=== PATIENT | female | born 1945 | race Caucasian/White ===

== ENCOUNTER 2018-04-07 01:09 | Emergency (ER) | payer MEDICARE ==
[2018-04-07] MEDS ORDERED: diphenhydrAMINE 50 MG/ML SDV IM ONE (01:18)
[2018-04-07] MEDS ORDERED: methylPREDNISolone Sodium Succinate 125 MG/2 ML SDV IVPUSH ONE (01:28)
--- NOTE | 2018-04-07 01:52 | EDM.PDOC ---
ED HPI GENERAL MEDICAL PROBLEM - General Chief Complaint: ENT Problem Stated Complaint: swollen tongue Time Seen by Provider: 04/07/18 01:39 - History of Present Illness INITIAL COMMENTS - FREE TEXT/NARRATIVE: Sandrine is a 73 year old female who presents to the ED with c/o a swollen tongue. She reports she ate two fig cookies around midnight. Reports she then went to take her dentures out about half hour later and noted her tongue to be swollen. She denies any issues breathing. Does report that her throat does feel like it is swollen. Also feels like her eyes may be a little swollen. She denies any known food allergies. She reports she has eaten those fig cookies in the past and had no reaction. No other new foods or anything else she can think of that she may have reacted to. Reports her only known medication is clindamycin. She denies any other complaints. She is talking in complete sentences without difficulty. Onset: Today, Sudden Onset Date: 04/07/18 Onset Time: 00:30 Duration: Constant Location: Reports: Other (tongue) Associated Symptoms: Reports: No Other Symptoms - Related Data Allergies Allergy/AdvReac Type Severity Reaction Status Date / Time clindamycin Allergy Cannot Uncoded 04/07/18 01:39 Remember Home Meds: Home Meds Ascorbic Acid [Vitamin C] 1 tab PO DAILY 09/08/14 [History] Aspirin [Low Dose Aspirin EC] 1 tab PO DAILY 09/08/14 [History] Clotrimazole/Betamethasone Dip [Lotrisone Cream] 45 tube TOP BID PRN 09/08/14 [ History] Multivitamin [Daily Vitamin] 1 tab PO DAILY 09/08/14 [History] Metoprolol Succinate [Toprol XL] 12.5 mg PO DAILY 01/13/15 [History] Carboxymethyl/Gly/Poly80/Pf [Refresh Optive Advanced Drops] 1 each OP QID PRN [History] Triamterene/Hydrochlorothiazid [Triamterene-HCTZ 37.5-25 MG] 1 each PO DAILY 06/24 [History] atorvaSTATin [Lipitor] 20 mg PO QPM 04/07/18 [History] ED ROS ENT - Review of Systems Review Of Systems: ROS reveals no pertinent complaints other than HPI. ED EXAM, ENT - Physical Exam Exam: See Below Exam Limited By: No Limitations General Appearance: Alert, WD/WN, No Apparent Distress Eye Exam: Bilateral Eye: EOMI, Normal Fundi, Normal Inspection, PERRL Ears: Normal External Exam, Normal Canal, Hearing Grossly Normal, Normal TMs Nose: Normal Inspection, Normal Mucousa, No Blood Mouth/Throat: Normal Gums, Normal Lips, Dry Mucous Membrane, Tongue Swelling ( moderate tongue swelling), Other (DENTURES REMOVED). No: Bleeding, Drooling, Gum Swelling, Hoarse Voice, Lip Swelling, Perioral Cyanosis, Pharyngeal Erythema , Throat Pain, Throat Swelling, Tonsillar Erythema, Tonsillar Exudates, Uvular Deviation, Uvular Edema Head: Atraumatic, Normocephalic Neck: Normal Inspection, Supple, Non-Tender, Full Range of Motion Respiratory/Chest: No Respiratory Distress, Lungs Clear, Normal Breath Sounds, No Accessory Muscle Use, Chest Non-Tender Cardiovascular: Normal Peripheral Pulses, Regular Rate, Rhythm, No Edema, No Gallop, No JVD, No Murmur, No Rub Neurological: Alert, Oriented, CN II-XII Intact, Normal Cognition, Normal Gait, Normal Reflexes, No Motor/Sensory Deficits Psychiatric: Normal Affect, Normal Mood Skin: Warm, Dry, Intact, Normal Color, No Rash Lymphatic: No Adenopathy Course - Vital Signs Last Recorded V/S: Last Vital Signs Temp 96.4 F 04/07/18 04:20 Pulse 70 04/07/18 04:20 Resp 16 04/07/18 04:20 BP 125/69 04/07/18 04:20 Pulse Ox 99 04/07/18 04:20 - Orders/Labs/Meds Meds: Medications Discontinued Medications Generic Name Dose Route Start Last Admin Trade Name Freq PRN Reason Stop Dose Admin Diphenhydramine HCl 50 mg 04/07/18 01:18 04/07/18 01:32 Benadryl IM 04/07/18 01:19 50 mg ONETIME ONE Administration Diphenhydramine HCl 50 mg 04/07/18 02:05 04/07/18 04:30 Benadryl PO 50 mg Q6H PRN Administration Other Epinephrine HCl 0.3 mg 04/07/18 02:01 04/07/18 02:04 Adrenalin IM 04/07/18 02:02 0.3 mg ONETIME ONE Administration Methylprednisolone Sodium Succinate 125 mg 04/07/18 01:28 04/07/18 01:33 Solu-Medrol IVPUSH 04/07/18 01:29 125 mg ONETIME ONE Administration - Re-Assessments/Exams Free Text/Narrative Re-Assessment/Exam: 04/07/18 01:53 Patient reports she feels lie tongue swelling has "went down some." 04/07/18 02:01 Tongue remains very swollen still. Will give epinephrine. 04/07/18 02:14 Swelling improving. Patient breathing without difficulty. Will keep in extended ED for ongoing observation. 04/07/18 04:35 Nursing staff report patients swelling has improved and patient wishes to discharge home. Discharge instructions previously provided. Patient is ok to discharge. Departure - Departure Time of Disposition: 04:35 Disposition: Home, Self-Care 01 Clinical Impression: Allergic angioedema Qualifiers: Encounter type: initial encounter Qualified Code(s): T78.3XXA - Angioneurotic edema, initial encounter - Discharge Information *PRESCRIPTION DRUG MONITORING PROGRAM REVIEWED*: Not Applicable *COPY OF PRESCRIPTION DRUG MONITORING REPORT IN PATIENT MISTY: Not Applicable Instructions: Angioedema, [id number] Referrals: PCP,None [Primary Care Provider] - Forms: ED Department Discharge Additional Instructions: Zyrtec (cetirizine) daily for the next 5 days. Ranitidine 150 mg oral twice daily for the next 3 days. Purchase these in am. Benadryl 50 mg every 6 hours as needed for swelling. This may make u sleepy. Avoid fig cookies, questionable cause of edema. Follow up in ED immediately for any difficulty breathing or feeling of throat closing Follow up with PCP in clinic for recheck Sunday - Assessment/Plan Plan: PLEASE SEE NURSES NOTE FOR PMH, PSH, SH, & FH.
[2018-04-07] MEDS ORDERED: EPINEPHrine 1 MG/ML SDV IM ONE (02:01)
[2018-04-07] MEDS ORDERED: diphenhydrAMINE 25 MG Cap PO PRN (02:05)
[2018-04-07 04:49] VITALS: BP 125/69
== END 2018-04-07 04:35 | disposition home or self-care (01) ==
LOC: CC.ED 01:09
DX: T78.3XXA Angioneurotic edema, initial encounter (principal); Z79.82 Long term (current) use of aspirin; Z79.899 Other long term (current) drug therapy; Z88.1 Allergy status to other antibiotic agents
CPT/HCPCS: 96372; 96374; 99285; A9270; J0171; J1200; J2930; 99283

== ENCOUNTER → 2018-04-26 | Day surgery (SDC) | payer MEDICARE ==
[~2018-04-26] MED LIST: Lactated Ringers 1,000 ML IV SCH; Propofol 200 MG/20 ML SDV IV ONE
[2018-04-26 08:37] VITALS: BP 131/66
--- NOTE | 2018-04-26 10:26 | OR ---
DATE OF OPERATION: 04/26/2018 PREOPERATIVE DIAGNOSIS: HEME-POSITIVE STOOL. POSTOPERATIVE DIAGNOSIS: HEME-POSITIVE STOOL. SURGEON: Hung Coughlin MD PROCEDURE: FULL-LENGTH COLONOSCOPY. ANESTHESIA: BELT FIXER due to GERD. COMPLICATIONS: None. SPECIMEN: Biopsy x1 of the splenic flexure. FINDINGS: 1. Full-length colonoscopy. 2. Mild sigmoid diverticulosis. 3. Focal area of colitis, splenic flexure. RECOMMENDATIONS: Medical followup with Dena Ling NP. INDICATIONS: The patient was in for a physical. Apparently, she had heme- positive stool on her exam. She was sent for a diagnostic colonoscopy. DESCRIPTION OF PROCEDURE: The patient was prepped and draped, placed in the left lateral decubitus position. A lubricated Olympus colonoscope was inserted and easily advanced to the cecum. We were able to directly visualize the ileocecal valve and appendiceal orifice. The bowel prep was fine. Upon withdrawal of the scope, the cecum, ascending, and transverse colon appeared benign. Right at the splenic flexure, the patient had one small focal area of what appeared to be mildly resolving colitis. We did do a biopsy of it. The rest of the descending colon was unremarkable. The sigmoid colon had scattered diverticula throughout, mild in severity, without any inflammatory changes. There were no signs of any polyps, mass, ulceration, or bleeding sites. No vascular abnormalities. The rectal vault appeared benign. Retroflexion of the scope in the rectum showed no anal lesions. Air was suctioned. Scope removed without complication. NIKKI/SLICK /[id number]
== END ==
LOC: CC.SDS 06:15
PROVIDERS: ATTEND Family Medicine
DX: R19.5 Other fecal abnormalities (principal); K21.9 Gastro-esophageal reflux disease without esophagitis; K57.30 Diverticulosis of large intestine without perforation or abscess without bleeding; I10 Essential (primary) hypertension; E78.5 Hyperlipidemia, unspecified; Z87.891 Personal history of nicotine dependence; Z79.82 Long term (current) use of aspirin; Z79.899 Other long term (current) drug therapy; Z88.1 Allergy status to other antibiotic agents
CPT/HCPCS: 45380; J2704; J7120; 00811; 88305

== ENCOUNTER 2018-05-20 21:58 | Emergency (ER) | payer MEDICARE ==
[2018-05-20] MEDS ORDERED: methylPREDNISolone Sodium Succinate 125 MG/2 ML SDV IM ONE (22:11)
[2018-05-20 22:31] VITALS: BP 137/66
[2018-05-20] MEDS ORDERED: diphenhydrAMINE 50 MG/ML SDV IM ONE (22:39)
--- NOTE | 2018-05-20 22:43 | EDM.PDOC ---
ED HPI GENERAL MEDICAL PROBLEM - General Chief Complaint: General Stated Complaint: lip swelling Time Seen by Provider: 05/20/18 22:25 Source of Information: Reports: Patient History Limitations: Reports: No Limitations - History of Present Illness INITIAL COMMENTS - FREE TEXT/NARRATIVE: Sandrine is a 73 year old female who presents to the ED with c/o swelling to her right lip. She has been struggling with episodes of angioedema the past few weeks. Has been seen in both ED and clinic. The last few times her tongue has been swelling, but this time it is the right side of her face, especially her right side lip. She reports she did not eat anything out of the ordinary this evening. Symptoms started at 8 pm. Denies any difficulty breathing. No chest pain or shortness of breath. Reports she took ibuprofen prior to coming because a friend told her that it helps with swelling. She did not use her Epipen nor take any Benadryl etc. No other symptoms. 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 - Related Data Allergies Allergy/AdvReac Type Severity Reaction Status Date / Time oregano Allergy Facial Verified 05/20/18 22:11 Swelling clindamycin Allergy Cannot Uncoded 05/20/18 22:11 Remember Home Meds: Home Meds Ascorbic Acid [Vitamin C] 250 mg PO DAILY 09/08/14 [History] Aspirin [Low Dose Aspirin EC] 81 mg PO DAILY 09/08/14 [History] Multivitamin [Daily Vitamin] 1 tab PO DAILY 09/08/14 [History] Metoprolol Succinate [Toprol XL] 12.5 mg PO DAILY 01/13/15 [History] Triamterene/Hydrochlorothiazid [Triamterene-HCTZ 37.5-25 MG] 1 each PO DAILY 06/24 [History] atorvaSTATin [Lipitor] 20 mg PO QPM 04/07/18 [History] Cholecalciferol (Vitamin D3) [Vitamin D3] 2,000 unit PO DAILY 04/24/18 [History] Past Medical History HEENT History: Reports: Allergic Rhinitis, Other (See Below) Other HEENT History: dry eyes Cardiovascular History: Reports: CAD, High Cholesterol, Stents Gastrointestinal History: Reports: GERD Musculoskeletal History: Reports: Arthritis, Fracture - Past Surgical History Cardiovascular Surgical History: Reports: Coronary Artery Stent Female Surgical History: Reports: D&C Musculoskeletal Surgical History: Reports: None Social & Family History - Family History Family Medical History: Noncontributory - Tobacco Use Smoking Status *Q: Never Smoker Second Hand Smoke Exposure: No ED ROS GENERAL - Review of Systems Review Of Systems: ROS reveals no pertinent complaints other than HPI. ED EXAM, GENERAL - Physical Exam Exam: See Below Exam Limited By: No Limitations General Appearance: Alert, WD/WN, No Apparent Distress Eye Exam: Bilateral Eye: EOMI, PERRL Ears: Normal External Exam, Normal Canal, Hearing Grossly Normal, Normal TMs Nose: Normal Inspection, Normal Mucosa, No Blood Throat/Mouth: Normal Teeth, Normal Gums, Normal Oropharynx, Normal Voice, No Airway Compromise, Other (swelling to right side of posterior face, right lips) Head: Facial Swelling Neck: Normal Inspection, Supple, Non-Tender, Full Range of Motion Respiratory/Chest: No Respiratory Distress, Lungs Clear, Normal Breath Sounds, No Accessory Muscle Use, Chest Non-Tender Cardiovascular: Normal Peripheral Pulses, Regular Rate, Rhythm, No Edema, No Gallop, No JVD, No Murmur, No Rub Neurological: Alert, Oriented, CN II-XII Intact, Normal Cognition, Normal Gait, Normal Reflexes, No Motor/Sensory Deficits Psychiatric: Normal Affect, Normal Mood Skin Exam: Warm, Dry, Intact, Normal Color, No Rash Lymphatic: No Adenopathy Course - Vital Signs Last Recorded V/S: Last Vital Signs Temp 97.6 F 05/20/18 22:17 Pulse 63 05/20/18 22:17 Resp 18 05/20/18 22:17 BP 137/66 05/20/18 22:17 Pulse Ox 98 05/20/18 22:17 - Orders/Labs/Meds Meds: Medications Discontinued Medications Generic Name Dose Route Start Last Admin Trade Name Freq PRN Reason Stop Dose Admin Diphenhydramine HCl 50 mg 05/20/18 22:39 Benadryl IM 05/20/18 22:40 ONETIME ONE Methylprednisolone Sodium Succinate 125 mg 05/20/18 22:11 05/20/18 22:15 Solu-Medrol IM 05/20/18 22:12 125 mg STAT ONE Administration - Re-Assessments/Exams Free Text/Narrative Re-Assessment/Exam: 05/20/18 23:04 Swelling improving. Departure - Departure Time of Disposition: 23:04 Disposition: Home, Self-Care 01 Condition: Good Clinical Impression: Allergic angioedema Qualifiers: Encounter type: initial encounter Qualified Code(s): T78.3XXA - Angioneurotic edema, initial encounter - Discharge Information *PRESCRIPTION DRUG MONITORING PROGRAM REVIEWED*: Not Applicable *COPY OF PRESCRIPTION DRUG MONITORING REPORT IN PATIENT MISTY: Not Applicable Instructions: Angioedema, [id number], Epinephrine Injection Forms: ED Department Discharge Additional Instructions: Use EpiPen as directed at onset of symptoms or if develop any difficulty breathing Benadryl 25-50 mg every 6 hours as needed at onset of symptoms Start Zyrtec (cetirizine) 10 mg daily and Pepcid (ranitidine) 150 mg twice daily until we identify cause of symptoms or stress level decreases. Return to ED if any difficulty breathing otherwise follow up in clinic. Come in for lab work in 2-3 days. We will complete allergy testing.
== END 2018-05-20 23:05 | disposition home or self-care (01) ==
LOC: CC.ED 21:58
DX: T78.3XXA Angioneurotic edema, initial encounter (principal); Z91.09 Other allergy status, other than to drugs and biological substances; Z88.1 Allergy status to other antibiotic agents; Z79.899 Other long term (current) drug therapy; Z79.82 Long term (current) use of aspirin
CPT/HCPCS: 96372; 99282; J1200; J2930

== ENCOUNTER 2020-02-10 16:40 | Emergency (ER) | payer MEDICARE, OTHER ==
[2020-02-10] MEDS: methylPREDNISolone Sodium Succinate 125 MG/2 ML SDV IM ONE (17:04)
--- NOTE | 2020-02-10 17:11 | EDM.PDOC ---
ED HPI GENERAL MEDICAL PROBLEM - General Chief Complaint: ENT Problem Stated Complaint: ALLERGY ATTACK Time Seen by Provider: 02/10/20 16:56 Source of Information: Reports: Patient History Limitations: Reports: No Limitations - History of Present Illness INITIAL COMMENTS - FREE TEXT/NARRATIVE: Patient presents to ER with complaints of tongue swelling. States ate 4 grapes around 1600 and started noting her tongue to swell about 15 minutes later. Took 2 Benadryl right away. Has an epi pen at home to use but states worries about being home alone when this happens. She has had 5 other episodes of this in the past. Was seen in [facility] ER on the 25 of January and was given 2 injections. STates symptoms were much worse at that time. Tongue was very swollen and was having trouble swallowing. Admits she came in faster this time to prevent that. She was told to take 2 Benadryl right away when it happened and did this time. She had 4 episodes last year similar to this. Had a blood test that showed she had some reaction to nuts but states had nuts a month ago and was fine. Admits she also ate grapes yesterday and didn't have a problem then. Has not had formal allergy testing yet. Has not taken any new meds or had any new foods as of late. 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(s) (benadryl) - Related Data Allergies Allergy/AdvReac Type Severity Reaction Status Date / Time oregano Allergy Facial Verified 02/10/20 16:53 Swelling clindamycin Allergy Cannot Uncoded 02/10/20 16:53 Remember Home Meds: Home Meds Ascorbic Acid [Vitamin C] 250 mg PO DAILY 09/08/14 [History] Aspirin [Low Dose Aspirin EC] 81 mg PO DAILY 09/08/14 [History] Multivitamin [Daily Vitamin] 1 tab PO DAILY 09/08/14 [History] Metoprolol Succinate [Toprol XL] 12.5 mg PO DAILY 01/13/15 [History] Triamterene/Hydrochlorothiazid [Triamterene-HCTZ 37.5-25 MG] 1 each PO DAILY 04/07/18 [History] atorvaSTATin [Lipitor] 20 mg PO QPM 04/07/18 [History] Cholecalciferol (Vitamin D3) [Vitamin D3] 2,000 unit PO DAILY 04/24/18 [History] diphenhydrAMINE [Benadryl] 25 mg PO DAILY 02/10/20 [History] Past Medical History HEENT History: Reports: Allergic Rhinitis, Other (See Below) Other HEENT History: dry eyes Cardiovascular History: Reports: CAD, High Cholesterol, Stents Gastrointestinal History: Reports: GERD Musculoskeletal History: Reports: Arthritis, Fracture - Past Surgical History HEENT Surgical History: Reports: Other (See Below) Other HEENT Surgeries/Procedures: tongue swelling, "allergic attacks" Cardiovascular Surgical History: Reports: Coronary Artery Stent Female Surgical History: Reports: D&C Musculoskeletal Surgical History: Reports: None Social & Family History - Family History Family Medical History: Noncontributory - Tobacco Use Smoking Status *Q: Never Smoker - Recreational Drug Use Recreational Drug Use: No ED ROS ALLERGIC REACTION - Review of Systems Review Of Systems: See Below Constitutional: Denies: Fever, Chills, Malaise, Weakness, Fatigue, Decreased Appetite HEENT: Reports: Other (tongue) Respiratory: Denies: Shortness of Breath, Cough Cardiovascular: Denies: Chest Pain, Edema, Lightheadedness Endocrine: Reports: No Symptoms GI/Abdominal: Reports: No Symptoms : Reports: No Symptoms Musculoskeletal: Reports: No Symptoms Skin: Reports: No Symptoms ED EXAM GENERAL NO PERIP PULSE - Physical Exam Exam: See Below Exam Limited By: No Limitations General Appearance: Alert, WD/WN, No Apparent Distress Ears: Normal External Exam, Normal TMs Nose: Normal Inspection, Normal Mucosa, No Blood Throat/Mouth: Normal Oropharynx, Other (right side of tongue is swollen) Head: Normocephalic Neck: Normal Inspection, Supple, Non-Tender Respiratory/Chest: No Respiratory Distress, Lungs Clear, Normal Breath Sounds Cardiovascular: Regular Rate, Rhythm GI/Abdominal: Normal Bowel Sounds, Soft, Non-Tender Neurological: Alert, Oriented Skin Exam: Warm, Dry Course - Vital Signs Last Recorded V/S: Last Vital Signs Temp 99 F 02/10/20 16:48 Pulse 68 02/10/20 17:06 Resp 16 02/10/20 17:06 BP 134/81 02/10/20 17:06 Pulse Ox 97 02/10/20 17:06 - Orders/Labs/Meds Meds: Medications Discontinued Medications Generic Name Dose Route Start Last Admin Trade Name [place] PRN Reason Stop Dose Admin Methylprednisolone Sodium Succinate 125 mg 02/10/20 17:00 02/10/20 17:04 Solu-Medrol IM 02/10/20 17:01 125 mg NOW ONE Administration - Re-Assessments/Exams Free Text/Narrative Re-Assessment/Exam: 02/10/20 17:20 Much discussion held about allergy testing and utilizing her epi pen if needed. patient has not been able to determine a source and has only had a basic blood test looking for allergies. Will monitor and observe oxygen sats 02/10/20 17:48 Swelling of tongue is improving. Oxygen sats remain 97% on room air. 02/10/20 18:06 States tongue does not feel numb any longer. Will have nursing observe for another 30-60 minutes and if continues to improve, may discharge home. Departure - Departure Time of Disposition: 18:07 Disposition: Home, Self-Care 01 Condition: Good Clinical Impression: Allergic angioedema Qualifiers: Encounter type: initial encounter Qualified Code(s): T78.3XXA - Angioneurotic edema, initial encounter - Discharge Information *PRESCRIPTION DRUG MONITORING PROGRAM REVIEWED*: No *COPY OF PRESCRIPTION DRUG MONITORING REPORT IN PATIENT MISTY: No Instructions: Angioedema, [id number] Referrals: Adry Fallon PA-C [Primary Care Provider] - Forms: ED Department Discharge Additional Instructions: 1. Rest 2. Push fluids 3. Benadryl 50 mg (2 of the 25 mg allergy tabs) every 4 hours for a total of 6 doses in 24 hours 4. Medrol dose joseluis~ start in am 5. Contact the [facility] tomorrow to schedule allergy evaluation 6. Follow up with Adry Fallon if any concerns. Sepsis Event Note (ED) - Evaluation Sepsis Screening Result: No Definite Risk - Focused Exam Vital Signs: Vital Signs Temp Pulse Resp BP Pulse Ox 02/10/20 17:06 68 16 134/81 97 02/10/20 16:48 99 F 80 16 149/80 H 97
[2020-02-10 18:12] VITALS: BP 127/82; PULSE 62
== END 2020-02-10 18:31 | disposition home or self-care (01) ==
LOC: CC.ED 16:40
DX: T78.3XXA Angioneurotic edema, initial encounter (principal); E78.00 Pure hypercholesterolemia, unspecified; I25.10 Atherosclerotic heart disease of native coronary artery without angina pectoris; Z95.5 Presence of coronary angioplasty implant and graft; Z88.1 Allergy status to other antibiotic agents; Z91.018 Allergy to other foods; Z79.82 Long term (current) use of aspirin; Z79.899 Other long term (current) drug therapy
CPT/HCPCS: 96372; 99283; J2930

== ENCOUNTER 2020-10-28 16:46 | Emergency (ER) | payer MEDICARE, OTHER ==
[2020-10-28] MEDS ORDERED: Ondansetron 4 MG/2 ML SDV IVPUSH PRN (17:00)
[2020-10-28] MEDS ORDERED: EPINEPHrine 1 MG/ML SDV SUBCUT ONE (17:17)
[2020-10-28] MEDS ORDERED: NITROGLYCERIN 0.4 MG PO PRN (17:19)
[2020-10-28] MEDS ORDERED: Non-Formulary Medication 1 Each (Epinephrine [Epinephrine] 0.3 MG/0.3 ML Auto.Injct) IM PRN (17:19)
[2020-10-28] MEDS ORDERED: Non-Formulary Medication 1 Each (Omeprazole [Omeprazole] 20 MG Cap.Cr) PO PRN (17:19)
--- NOTE | 2020-10-28 17:53 | EDM.PDOC ---
ED HPI GENERAL MEDICAL PROBLEM - General Chief Complaint: ENT Problem Stated Complaint: TONGUE IS SWOLLEN Time Seen by Provider: 10/28/20 17:00 Source of Information: Reports: Patient History Limitations: Reports: No Limitations - History of Present Illness INITIAL COMMENTS - FREE TEXT/NARRATIVE: [place] to swell. She has had this happen numerous times in the past and does carry and epipen which she did not use. She did take a total of 75 mg of benadryl prior to coming in. She thinks that it started about 4:15. She has had allergy testing in the past and has not been able to identify what causes this to occur. She denies feeling SOB with it. She noted that the left side of her tongue started to swell. Her voice is muffled. She denies difficulty swallowing. Onset: Sudden Onset Date: 10/28/20 Onset Time: 16:15 Duration: Getting Worse Location: Reports: Other (tongue) - Related Data Allergies Allergy/AdvReac Type Severity Reaction Status Date / Time oregano Allergy Facial Verified 06/03/20 10:51 Swelling clindamycin Allergy Cannot Uncoded 06/03/20 10:51 Remember Home Meds: Home Meds Ascorbic Acid [Vitamin C] 250 mg PO DAILY 09/08/14 [History] Aspirin [Low Dose Aspirin EC] 81 mg PO DAILY 09/08/14 [History] Metoprolol Succinate [Toprol XL] 12.5 mg PO DAILY 01/13/15 [History] atorvaSTATin [Lipitor] 20 mg PO QPM 04/07/18 [History] Cholecalciferol (Vitamin D3) [Vitamin D3] 2,000 unit PO DAILY 04/24/18 [History] EPINEPHrine [Epinephrine] 1 injection IM ASDIRECTED PRN 06/03/20 [History] Nitroglycerin [Nitrostat] 1 tab PO ASDIRECTED PRN 06/03/20 [History] Omeprazole 20 mg PO ASDIRECTED PRN 06/03/20 [History] hydroCHLOROthiazide [Hydrochlorothiazide] 25 mg PO DAILY 06/03/20 [History] Past Medical History HEENT History: Reports: Allergic Rhinitis, Other (See Below) Other HEENT History: dry eyes Cardiovascular History: Reports: CAD, High Cholesterol, Stents Gastrointestinal History: Reports: GERD Musculoskeletal History: Reports: Arthritis, Fracture - Past Surgical History HEENT Surgical History: Reports: Other (See Below) Other HEENT Surgeries/Procedures: tongue swelling, "allergic attacks" Cardiovascular Surgical History: Reports: Coronary Artery Stent Female Surgical History: Reports: D&C Musculoskeletal Surgical History: Reports: None Social & Family History - Family History Family Medical History: No Pertinent Family History - Living Situation & Occupation Living situation: Reports: , Alone Occupation: Retired ED ROS ALLERGIC REACTION - Review of Systems Review Of Systems: See Below Constitutional: Denies: Fever, Chills, Weakness HEENT: Reports: Other (tongue swelling.) Respiratory: Reports: No Symptoms Cardiovascular: Reports: No Symptoms GI/Abdominal: Reports: No Symptoms Skin: Reports: No Symptoms Neurological: Reports: No Symptoms ED EXAM GENERAL NO PERIP PULSE - Physical Exam Exam: See Below Exam Limited By: No Limitations General Appearance: Alert, WD/WN, Mild Distress Ears: Normal External Exam, Normal Canal, Normal TMs Nose: Normal Inspection Throat/Mouth: Normal Inspection, No Airway Compromise, Other (left side of tongue is swollen and her voice is muffled.) Head: Atraumatic, Normocephalic Neck: Normal Inspection, Supple, Non-Tender, Full Range of Motion Respiratory/Chest: No Respiratory Distress, Lungs Clear, Normal Breath Sounds Cardiovascular: Normal Peripheral Pulses, Regular Rate, Rhythm, No Edema GI/Abdominal: Normal Bowel Sounds, Soft, Non-Tender Back Exam: Normal Inspection, Full Range of Motion Extremities: Normal Inspection, Normal Range of Motion, No Pedal Edema, Normal Capillary Refill Neurological: Alert, Oriented Psychiatric: Normal Affect Skin Exam: Warm, Dry, Intact Course - Orders/Labs/Meds Orders: Active Orders 24 hr Category Date Time Status Ascorbic Acid [Vitamin C] Med 10/29/20 08:00 Active 250 mg PO DAILY Aspirin [Low Dose Aspirin EC] Med 10/29/20 08:00 Active 81 mg PO DAILY Cholecalciferol (Vitamin D3) [Vitamin D3] Med 10/29/20 08:00 Active 2,000 unit PO DAILY EPINEPHrine [Epinephrine] Med 10/28/20 17:19 Active 1 injection IM ASDIRECTED PRN Metoprolol Succinate [Toprol XL] Med 10/29/20 08:00 Active 12.5 mg PO DAILY Nitroglycerin [Nitrostat] Med 10/28/20 17:19 Active 1 tab PO ASDIRECTED PRN Omeprazole [Omeprazole] Med 10/28/20 17:19 Active 20 mg PO ASDIRECTED PRN atorvaSTATin [Lipitor] Med 10/28/20 20:00 Active 20 mg PO QPM hydroCHLOROthiazide [Hydrochlorothiazide] Med 10/29/20 08:00 Active 25 mg PO DAILY Medication Orders Non-Formulary Medication (Ascorbic Acid [Vitamin C]) 250 mg PO DAILY CL Non-Formulary Medication (Aspirin [Low Dose Aspirin Ec]) 81 mg PO DAILY CL Non-Formulary Medication (Atorvastatin [Lipitor]) 20 mg PO QPM CL Non-Formulary Medication (Cholecalciferol (Vitamin D3) [Vitamin D3]) 2,000 unit PO DAILY CL Non-Formulary Medication (Epinephrine [Epinephrine]) 1 injection IM ASDIRECTED PRN PRN Reason: other Non-Formulary Medication (Hydrochlorothiazide [Hydrochlorothiazide]) 25 mg PO DAILY CL Non-Formulary Medication (Metoprolol Succinate [Toprol Xl]) 12.5 mg PO DAILY CL Non-Formulary Medication (Nitroglycerin [Nitrostat]) 1 tab PO ASDIRECTED PRN PRN Reason: Chest Pain Non-Formulary Medication (Omeprazole [Omeprazole]) 20 mg PO ASDIRECTED PRN PRN Reason: Pain Meds: Medications Generic Name Dose Route Start Last Admin Trade Name Freq PRN Reason Stop Dose Admin Non-Formulary Medication 250 mg 10/29/20 08:00 Ascorbic Acid [Vitamin C] PO DAILY CL Non-Formulary Medication 81 mg 10/29/20 08:00 Aspirin [Low Dose Aspirin Ec] PO DAILY CL Non-Formulary Medication 20 mg 10/28/20 20:00 Atorvastatin [Lipitor] PO QPM CL Non-Formulary Medication 2,000 unit 10/29/20 08:00 Cholecalciferol (Vitamin D3) [Vitamin D3] PO DAILY CL Non-Formulary Medication 1 injection 10/28/20 17:19 Epinephrine [Epinephrine] IM ASDIRECTED PRN other Non-Formulary Medication 25 mg 10/29/20 08:00 Hydrochlorothiazide [Hydrochlorothiazide] PO DAILY CL Non-Formulary Medication 12.5 mg 10/29/20 08:00 Metoprolol Succinate [Toprol Xl] PO DAILY CL Non-Formulary Medication 1 tab 10/28/20 17:19 Nitroglycerin [Nitrostat] PO ASDIRECTED PRN Chest Pain Non-Formulary Medication 20 mg 10/28/20 17:19 Omeprazole [Omeprazole] PO ASDIRECTED PRN Pain Discontinued Medications Generic Name Dose Route Start Last Admin Trade Name [place] PRN Reason Stop Dose Admin Epinephrine HCl 0.3 mg 10/28/20 17:17 10/28/20 17:05 Epinephrine 1 Mg/Ml Sdv SUBCUT 10/28/20 17:18 0.3 mg ONETIME ONE Administration Methylprednisolone Sodium Succinate 125 mg 10/28/20 18:15 Methylprednisolone Sodium Succinate 125 Mg/2 Ml Sdv IVPUSH 10/28/20 18:16 NOW ONE Methylprednisolone Sodium Succinate 125 mg 10/28/20 18:29 Methylprednisolone Sodium Succinate 125 Mg/2 Ml Sdv IM 10/28/20 18:30 NOW ONE Ondansetron HCl 4 mg 10/28/20 17:00 Ondansetron 4 Mg/2 Ml Sdv IVPUSH Q6H PRN Nausea - Re-Assessments/Exams Free Text/Narrative Re-Assessment/Exam: 10/28/20 17:55 She did receive epi on arrival. Currently voice is much clearer and her tongue is less swollen. Benadryl was not repeated as she has already taken 75 mg po and she is improving. No wheezing noted. 10/28/20 19:01 States that her tongue feels so much better and it is almost back to normal. Her voice is normal at this time. She feels that she is good to go home at this time. Will discharge. Departure - Departure Time of Disposition: 19:01 Disposition: Home, Self-Care 01 Clinical Impression: Allergic angioedema Qualifiers: Encounter type: initial encounter Qualified Code(s): T78.3XXA - Angioneurotic edema, initial encounter - Discharge Information *PRESCRIPTION DRUG MONITORING PROGRAM REVIEWED*: Not Applicable *COPY OF PRESCRIPTION DRUG MONITORING REPORT IN PATIENT MISTY: Not Applicable Forms: ED Department Discharge Additional Instructions: repeat benadryl if symptoms do return have epi pen with you at all times recheck if any new concerns. - Problem List & Annotations (1) Allergic angioedema SNOMED Code(s): 281540664 Code(s): T78.3XXA - ANGIONEUROTIC EDEMA, INITIAL ENCOUNTER Status: Acute Priority: High Qualifiers: Encounter type: initial encounter Qualified Code(s): T78.3XXA - A ngioneurotic edema, initial encounter - Problem List Review Problem List Initiated/Reviewed/Updated: Yes - My Orders Last 24 Hours: My Active Orders 10/28/20 17:19 EPINEPHrine [Epinephrine] 1 injection IM ASDIRECTED PRN Nitroglycerin [Nitrostat] 1 tab PO ASDIRECTED PRN Omeprazole [Omeprazole] 20 mg PO ASDIRECTED PRN 10/28/20 20:00 atorvaSTATin [Lipitor] 20 mg PO QPM 10/29/20 08:00 Ascorbic Acid [Vitamin C] 250 mg PO DAILY Aspirin [Low Dose Aspirin EC] 81 mg PO DAILY Cholecalciferol (Vitamin D3) [Vitamin D3] 2,000 unit PO DAILY Metoprolol Succinate [Toprol XL] 12.5 mg PO DAILY hydroCHLOROthiazide [Hydrochlorothiazide] 25 mg PO DAILY - Assessment/Plan Last 24 Hours: My Active Orders 10/28/20 17:19 EPINEPHrine [Epinephrine] 1 injection IM ASDIRECTED PRN Nitroglycerin [Nitrostat] 1 tab PO ASDIRECTED PRN Omeprazole [Omeprazole] 20 mg PO ASDIRECTED PRN 10/28/20 20:00 atorvaSTATin [Lipitor] 20 mg PO QPM 10/29/20 08:00 Ascorbic Acid [Vitamin C] 250 mg PO DAILY Aspirin [Low Dose Aspirin EC] 81 mg PO DAILY Cholecalciferol (Vitamin D3) [Vitamin D3] 2,000 unit PO DAILY Metoprolol Succinate [Toprol XL] 12.5 mg PO DAILY hydroCHLOROthiazide [Hydrochlorothiazide] 25 mg PO DAILY
[2020-10-28] MEDS ORDERED: methylPREDNISolone Sodium Succinate 125 MG/2 ML SDV IVPUSH ONE (18:15)
[2020-10-28] MEDS ORDERED: methylPREDNISolone Sodium Succinate 125 MG/2 ML SDV IM ONE (18:29)
[2020-10-28] MEDS ORDERED: Non-Formulary Medication 1 Each (Atorvastatin [Lipitor] 40 MG Tablet) PO SCH (20:00)
[2020-10-28 20:17] VITALS: BP 121/70; PULSE 63
[2020-10-29] MEDS ORDERED: Non-Formulary Medication 1 Each (Cholecalciferol (Vitamin D3) [Vitamin D3] 2,000 UNIT Caps PO SCH (08:00)
[2020-10-29] MEDS ORDERED: Non-Formulary Medication 1 Each (Metoprolol Succinate [Toprol Xl] 25 MG Tab.Er) PO SCH (08:00)
[2020-10-29] MEDS ORDERED: Non-Formulary Medication 1 Each (Hydrochlorothiazide [Hydrochlorothiazide] 25 MG Tablet) PO SCH (08:00)
[2020-10-29] MEDS ORDERED: ASPIRIN 81 MG PO SCH (08:00)
[2020-10-29] MEDS ORDERED: Non-Formulary Medication 1 Each (Ascorbic Acid [Vitamin C] 250 MG Tablet) PO SCH (08:00)
== END 2020-10-28 19:05 | disposition home or self-care (01) ==
LOC: CC.ED 16:46
DX: T78.3XXA Angioneurotic edema, initial encounter (principal); I25.10 Atherosclerotic heart disease of native coronary artery without angina pectoris; E78.00 Pure hypercholesterolemia, unspecified; K21.9 Gastro-esophageal reflux disease without esophagitis; Z95.5 Presence of coronary angioplasty implant and graft; Z79.899 Other long term (current) drug therapy
CPT/HCPCS: 96372; 99283; J0171; J2930

== ENCOUNTER 2021-04-30 08:29 | Emergency (ER) | payer MEDICARE, OTHER ==
[2021-04-30 09:38] VITALS: BP 145/86; PULSE 75
--- NOTE | 2021-04-30 09:51 | EDM.PDOC ---
ED HPI GENERAL MEDICAL PROBLEM - General Chief Complaint: Respiratory Problem Stated Complaint: COUGH,CONGESTION,SCRATCHY THROAT Time Seen by Provider: 04/30/21 09:00 Source of Information: Reports: Patient - History of Present Illness INITIAL COMMENTS - FREE TEXT/NARRATIVE: This is a 76-year-old female patient that presents to the emergency department with flulike symptoms. Patient states her symptoms started approximately 3 to 4 days ago. States that she has a cough, body aches, and some shortness of breath. Patient denies fever. She has been using [id number] cold and flu remedies and Tylenol. States these remedies have been helping some. Patient has not experienced any respiratory distress. Alert and oriented x3. 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 - Related Data Allergies Allergy/AdvReac Type Severity Reaction Status Date / Time oregano Allergy Facial Verified 06/03/20 10:51 Swelling clindamycin Allergy Cannot Uncoded 06/03/20 10:51 Remember Home Meds: Home Meds Ascorbic Acid [Vitamin C] 250 mg PO DAILY 09/08/14 [History] Aspirin [Low Dose Aspirin EC] 81 mg PO DAILY 09/08/14 [History] Metoprolol Succinate [Toprol XL] 12.5 mg PO DAILY 01/13/15 [History] atorvaSTATin [Lipitor] 20 mg PO QPM 04/07/18 [History] Cholecalciferol (Vitamin D3) [Vitamin D3] 2,000 unit PO DAILY 04/24/18 [History] EPINEPHrine [Epinephrine] 1 injection IM ASDIRECTED PRN 06/03/20 [History] Nitroglycerin [Nitrostat] 1 tab PO ASDIRECTED PRN 06/03/20 [History] Omeprazole 20 mg PO ASDIRECTED PRN 06/03/20 [History] hydroCHLOROthiazide [Hydrochlorothiazide] 25 mg PO DAILY 06/03/20 [History] Past Medical History - Past Health History Medical/Surgical History: Denies Medical/Surgical History HEENT History: Reports: Allergic Rhinitis, Other (See Below) Other HEENT History: dry eyes Cardiovascular History: Reports: None, CAD, High Cholesterol, Stents Gastrointestinal History: Reports: GERD Musculoskeletal History: Reports: Arthritis, Fracture - Past Surgical History HEENT Surgical History: Reports: Other (See Below) Other HEENT Surgeries/Procedures: tongue swelling, "allergic attacks" Cardiovascular Surgical History: Reports: Coronary Artery Stent Female Surgical History: Reports: D&C Musculoskeletal Surgical History: Reports: None Social & Family History - Family History Family Medical History: No Pertinent Family History HEENT: Reports: None Cardiac: Reports: None - Caffeine Use Caffeine Use: Reports: None - Living Situation & Occupation Living situation: Reports: , Alone Occupation: Retired ED ROS GENERAL - Review of Systems Review Of Systems: Comprehensive ROS is negative, except as noted in HPI. ED EXAM, GENERAL - Physical Exam Exam: See Below Exam Limited By: No Limitations General Appearance: Alert, WD/WN, No Apparent Distress Nose: Normal Inspection, Normal Mucosa Throat/Mouth: Normal Inspection, Normal Voice, No Airway Compromise Head: Atraumatic Neck: Normal Inspection, Supple, Non-Tender Respiratory/Chest: No Respiratory Distress, Lungs Clear Cardiovascular: Regular Rate, Rhythm, No Gallop, No Murmur, No Rub GI/Abdominal: Soft, Non-Tender (Female) Exam: Deferred Rectal (Female) Exam: Deferred Extremities: No Pedal Edema Neurological: Alert, Oriented, Normal Cognition Psychiatric: Normal Affect, Normal Mood Skin Exam: Warm, Dry, Intact Course - Vital Signs Last Recorded V/S: Last Vital Signs Temp 98.7 F 04/30/21 08:30 Pulse 75 04/30/21 08:30 Resp 16 04/30/21 08:30 BP 145/86 H 04/30/21 08:30 Pulse Ox 95 04/30/21 08:30 - Orders/Labs/Meds Orders: Active Orders 24 hr Category Date Time Status Isolation [COMM] Routine Oth 04/30/21 08:31 Active Labs: Laboratory Tests 04/30/21 Range/Units 08:30 SARS CoV-2 RNA Rapid CHARLI Negative (NEGATIVE) - Re-Assessments/Exams Free Text/Narrative Re-Assessment/Exam: This is a 76-year-old female that presented with flulike symptoms. Influenza and Covid test obtained. Covid is negative patient is positive for influenza B. Due to symptoms starting 3 to 4 days ago discussed Tamiflu with the patient but it is not recommended due to onset greater than 48 hours. Discussed plan with patient to continue her [id number] regimen and Tylenol. Patient is well aware that she may be symptomatic for several more days. Patient to follow-up or return if condition worsens or if she has any questions. Departure - Departure Time of Disposition: 09:45 Disposition: Home, Self-Care 01 Condition: Good Clinical Impression: Influenza B - Discharge Information *PRESCRIPTION DRUG MONITORING PROGRAM REVIEWED*: Not Applicable *COPY OF PRESCRIPTION DRUG MONITORING REPORT IN PATIENT MISTY: Not Applicable Instructions: Influenza, Adult Referrals: PCP,None [Primary Care Provider] - Additional Instructions: 1. Your lab test today showed that you have influenza B. 2. Symptoms are beyond 48 hours so Tamiflu is not indicated. 3. Stay hydrated by drinking plenty of fluids. 4. You may continue to use the over the counter medication that was discussed. 5. Continue taking Tylenol as directed. 6. Call or return if your symptoms are worsening or if you have any questions. Sepsis Event Note (ED) - Evaluation Sepsis Screening Result: No Definite Risk - Focused Exam Vital Signs: Vital Signs Temp Pulse Resp BP Pulse Ox 04/30/21 08:30 98.7 F 75 16 145/86 H 95 - My Orders Last 24 Hours: My Active Orders 04/30/21 08:31 Isolation [COMM] Routine - Assessment/Plan Last 24 Hours: My Active Orders 04/30/21 08:31 Isolation [COMM] Routine
== END 2021-04-30 09:56 | disposition home or self-care (01) ==
LOC: CC.ED 08:29
DX: J10.1 Influenza due to other identified influenza virus with other respiratory manifestations (principal); E78.00 Pure hypercholesterolemia, unspecified; I25.10 Atherosclerotic heart disease of native coronary artery without angina pectoris; K21.9 Gastro-esophageal reflux disease without esophagitis; Z79.899 Other long term (current) drug therapy; Z79.82 Long term (current) use of aspirin; Z20.822 Contact with and (suspected) exposure to COVID-19
CPT/HCPCS: 87804; 99284; U0002

== ENCOUNTER 2024-01-23 15:46 | Emergency (ER) | payer MEDICARE, OTHER ==
[2024-01-23] MEDS: Nitroglycerin 0.4 MG Tab.SL SL ONE (16:16)
[2024-01-23] MEDS: Glucagon,Human Recombinant 1 MG Vial IVPUSH ONE (16:22)
[2024-01-23] MEDS: Sodium Chloride 0.9% 500 ML IV SCH (16:22)
[2024-01-23] MEDS: Ondansetron 4 MG/2 ML SDV ONE (16:40)
[2024-01-23 17:10] VITALS: BP 146/69; PULSE 52
== END 2024-01-23 16:55 | disposition critical access hospital (66) ==
LOC: CC.ED 15:46
DX: K22.2 Esophageal obstruction (principal); I25.10 Atherosclerotic heart disease of native coronary artery without angina pectoris; E78.00 Pure hypercholesterolemia, unspecified; Z95.5 Presence of coronary angioplasty implant and graft; Z79.82 Long term (current) use of aspirin; Z79.899 Other long term (current) drug therapy; Z88.1 Allergy status to other antibiotic agents; Z91.018 Allergy to other foods
CPT/HCPCS: 96374; 99283; 99284-25; A9270-GY; J1610; J2405; J7040

== ENCOUNTER 2024-11-01 19:44 | Observation (INO) | payer MEDICARE, OTHER ==
[2024-11-01] MEDS: Sodium Chloride 0.9% 1,000 ML IV SCH (20:18)
[2024-11-01] MEDS: Ondansetron 4 MG/2 ML SDV IVPUSH ONE (20:18)
[2024-11-01 20:26] LABS: BASOPHILS ABSOLUTE AUTO 0.04 10^3/uL (0.00-0.50); BASOPHILS PERCENT AUTO 0.5 % (0-1); EOSINOPHILS PERCENT AUTO 1.3 % (0-6); HEMATOCRIT 40.9 % (37.0-47.0); HEMOGLOBIN 13.4 g/dL (12.0-16.0); IMMATURE GRAN ABSOLUTE AUTO 0.03 10^3/uL (0.00-0.49); IMMATURE GRAN PERCENT AUTO 0.4 % (0.0-4.9); LYMPHOCYTES ABSOLUTE AUTO 0.74 10^3/uL (0.60-5.00); LYMPHOCYTES PERCENT AUTO 9.7 % (24-44); MEAN CORPUSCULAR HEMOGLOBIN 30.5 pg (27.0-32.0); MEAN CORPUSCULAR HGB CONC 32.8 g/dL (32.0-36.0); MEAN CORPUSCULAR VOLUME 93.2 fL (83.0-97.0); MONOCYTES ABSOLUTE AUTO 1.11 10^3/uL (0.00-1.50); MONOCYTES PERCENT AUTO 14.6 % (0-10); NEUTROPHILS ABSOLUTE AUTO 5.57 x10^3/uL (1.80-8.00); NEUTROPHILS PERCENT AUTO 73.5 % (41-71); PLATELET COUNT,PLT 214 10^3/uL (150-400); RED BLOOD CELL COUNT 4.39 x10^6/uL (4.00-5.50); WHITE BLOOD CELL COUNT,WBC 7.6 10^3/uL (4.0-11.0)
[2024-11-01 20:35] LABS: ALANINE AMINOTRANSFERASE,ALT 23 U/L (12-78); ALBUMIN 3.9 g/dL (3.4-5.0); ALKALINE PHOSPHATASE 96 U/L (46-116); ASPARTATE AMNIOTRANSFERASE,AST 19 U/L (15-37); BILIRUBIN TOTAL 0.4 mg/dL (0.0-1.0); BLOOD UREA NITROGEN,BUN 19 mg/dL (7-18); C-REACTIVE PROTEIN < 0.50 mg/dL (<=0.50); CARBON DIOXIDE,CO2 26 mmol/L (21-32); CHLORIDE,CL 101 mEq/L (98-106); EST CRCL DRUG DOSING (CG) 34.99 mL/min; ESTIMATED GFR 58 mL/min (>=60); GLUCOSE RANDOM 97 mg/dL (75-99); LIPASE 15 U/L (16-77); PROTEIN TOTAL,TP 7.5 g/dL (6.4-8.2); SODIUM,NA 139 mEq/L (136-145)
[2024-11-01 20:42] LABS: POTASSIUM,K 2.9 mEq/L (3.5-5.0)
[2024-11-01] MEDS: Iopamidol 755 Mg/ML 100 ML Bottle IVPUSH ONE (21:34)
[2024-11-01] MEDS: Potassium Chloride 20 MEQ Tab.ER PO ONE (21:55)
[2024-11-01] MEDS ORDERED: Ondansetron 4 MG/2 ML SDV IV PRN (23:52)
[2024-11-01] MEDS ORDERED: Ondansetron 4 MG Tab.DIS PO PRN (23:52)
[2024-11-01] MEDS ORDERED: Acetaminophen 325 MG Tab PO PRN (23:52)
[2024-11-02 07:21] LABS: APPEARANCE,URINE CLEAR (CLEAR); BILIRUBIN,URINE NEGATIVE (NEGATIVE); COLOR,URINE YELLOW (YELLOW); GLUCOSE,URINE NEGATIVE (NEGATIVE); KETONES,URINE 15 mg/dL (NEGATIVE); LEUKOCYTE ESTERASE,URINE NEGATIVE (NEGATIVE); NITRITE,URINE NEGATIVE (NEGATIVE); OCCULT BLOOD,URINE NEGATIVE (NEGATIVE); PH,URINE 5.5 (4.5-8.0); PROTEIN,URINE NEGATIVE (NEGATIVE); UROBILINOGEN,URINE 0.2 EU/dL (0.2-1.0)
[2024-11-02 08:09] LABS: BASOPHILS ABSOLUTE AUTO 0.03 10^3/uL (0.00-0.50); BASOPHILS PERCENT AUTO 0.5 % (0-1); EOSINOPHILS ABSOLUTE AUTO 0.17 10^3/uL (0.00-1.50); EOSINOPHILS PERCENT AUTO 2.9 % (0-6); HEMATOCRIT 37.1 % (37.0-47.0); HEMOGLOBIN 12.3 g/dL (12.0-16.0); IMMATURE GRAN ABSOLUTE AUTO 0.01 10^3/uL (0.00-0.49); IMMATURE GRAN PERCENT AUTO 0.2 % (0.0-4.9); LYMPHOCYTES ABSOLUTE AUTO 0.87 10^3/uL (0.60-5.00); LYMPHOCYTES PERCENT AUTO 14.8 % (24-44); MEAN CORPUSCULAR HGB CONC 33.2 g/dL (32.0-36.0); MEAN CORPUSCULAR VOLUME 93.5 fL (83.0-97.0); MONOCYTES ABSOLUTE AUTO 0.97 10^3/uL (0.00-1.50); MONOCYTES PERCENT AUTO 16.5 % (0-10); NEUTROPHILS ABSOLUTE AUTO 3.83 x10^3/uL (1.80-8.00); NEUTROPHILS PERCENT AUTO 65.1 % (41-71); PLATELET COUNT,PLT 196 10^3/uL (150-400); RED BLOOD CELL COUNT 3.97 x10^6/uL (4.00-5.50); WHITE BLOOD CELL COUNT,WBC 5.9 10^3/uL (4.0-11.0)
[2024-11-02 08:17] LABS: BLOOD UREA NITROGEN,BUN 10 mg/dL (7-18); CALCIUM 8.4 mg/dL (8.4-10.1); CARBON DIOXIDE,CO2 24 mmol/L (21-32); CHLORIDE,CL 108 mEq/L (98-106); CREATININE 0.8 mg/dL (0.6-1.0); EST CRCL DRUG DOSING (CG) 43.73 mL/min; GLUCOSE RANDOM 76 mg/dL (75-99); POTASSIUM,K 3.7 mEq/L (3.5-5.0); SODIUM,NA 141 mEq/L (136-145)
[2024-11-02 08:18] LABS: C-REACTIVE PROTEIN < 0.50 mg/dL (<=0.50); ESTIMATED GFR 75 mL/min (>=60)
[2024-11-02] MEDS: Cholecalciferol (Vitamin D3) 25 MCG Tab PO SCH (08:21)
[2024-11-02] MEDS: Metoprolol Succinate 25 MG Tab.ER PO SCH (08:21)
[2024-11-02] MEDS: Hydrochlorothiazide 25 MG Tab PO SCH (08:21)
[2024-11-02] MEDS: Aspirin 81 MG Tab.EC PO SCH (08:21)
[2024-11-02] MEDS: Sodium Chloride 0.9% 1,000 ML IV SCH (09:35)
[2024-11-02] MEDS: Loperamide 2 MG Cap PO PRN (12:00)
[2024-11-02] MEDS: HYDROmorphone 0.5 MG/0.5 ML Syringe IVPUSH PRN (15:42)
[2024-11-02] MEDS: Piperacillin/Tazobactam 4.5 GM in Sodium Chloride 0.9% 100 ML IV ONE (16:29)
[2024-11-02] MEDS: Iopamidol 755 Mg/ML 100 ML Bottle IVPUSH ONE (16:44)
[2024-11-02] MEDS: Simethicone 80 MG Tab.Chew PO SCH (20:23)
[2024-11-02] MEDS: Potassium Chloride 20 MEQ Tab.ER PO SCH (20:23)
[2024-11-02] MEDS: atorvaSTATin 10 MG Tab PO SCH (20:23)
[2024-11-02] MEDS: Piperacillin/Tazobactam 4.5 GM in Sodium Chloride 0.9% 100 ML IV SCH (20:24)
[2024-11-03 07:41] LABS: BASOPHILS ABSOLUTE AUTO 0.04 10^3/uL (0.00-0.50); BASOPHILS PERCENT AUTO 0.8 % (0-1); EOSINOPHILS ABSOLUTE AUTO 0.24 10^3/uL (0.00-1.50); EOSINOPHILS PERCENT AUTO 4.7 % (0-6); HEMOGLOBIN 11.5 g/dL (12.0-16.0); IMMATURE GRAN ABSOLUTE AUTO 0.01 10^3/uL (0.00-0.49); IMMATURE GRAN PERCENT AUTO 0.2 % (0.0-4.9); LYMPHOCYTES ABSOLUTE AUTO 1.01 10^3/uL (0.60-5.00); LYMPHOCYTES PERCENT AUTO 19.6 % (24-44); MEAN CORPUSCULAR HEMOGLOBIN 30.3 pg (27.0-32.0); MEAN CORPUSCULAR HGB CONC 31.9 g/dL (32.0-36.0); MONOCYTES ABSOLUTE AUTO 0.72 10^3/uL (0.00-1.50); NEUTROPHILS ABSOLUTE AUTO 3.12 x10^3/uL (1.80-8.00); NEUTROPHILS PERCENT AUTO 60.7 % (41-71); PLATELET COUNT,PLT 196 10^3/uL (150-400); RED BLOOD CELL COUNT 3.79 x10^6/uL (4.00-5.50); WHITE BLOOD CELL COUNT,WBC 5.1 10^3/uL (4.0-11.0)
[2024-11-03] MEDS: Lactobacillus Rhamnosus GG (Probiotic) Cap PO SCH (08:04)
[2024-11-03 08:37] LABS: ALANINE AMINOTRANSFERASE,ALT 16 U/L (12-78); ALKALINE PHOSPHATASE 65 U/L (46-116); ASPARTATE AMNIOTRANSFERASE,AST 14 U/L (15-37); BILIRUBIN TOTAL 0.5 mg/dL (0.0-1.0); BLOOD UREA NITROGEN,BUN 4 mg/dL (7-18); CALCIUM 8.4 mg/dL (8.4-10.1); CARBON DIOXIDE,CO2 25 mmol/L (21-32); CHLORIDE,CL 108 mEq/L (98-106); CREATININE 0.8 mg/dL (0.6-1.0); EST CRCL DRUG DOSING (CG) 43.73 mL/min; GLUCOSE RANDOM 75 mg/dL (75-99); POTASSIUM,K 3.4 mEq/L (3.5-5.0); PROTEIN TOTAL,TP 5.9 g/dL (6.4-8.2); SODIUM,NA 142 mEq/L (136-145)
[2024-11-03 08:38] LABS: C-REACTIVE PROTEIN < 0.50 mg/dL (<=0.50); ESTIMATED GFR 75 mL/min (>=60)
[2024-11-03 13:01] VITALS: BP 139/67; PULSE 61
== END 2024-11-03 13:20 | disposition home or self-care (01) ==
LOC: CC.ED 19:44 → UNDOADMOB 22:45 → CC.MS 22:45
PROVIDERS: ADMIT Nurse Practitioner Family; ATTEND Nurse Practitioner Family
DX: K52.9 Noninfective gastroenteritis and colitis, unspecified (principal); E87.6 Hypokalemia; R11.2 Nausea with vomiting, unspecified; I25.10 Atherosclerotic heart disease of native coronary artery without angina pectoris; E78.00 Pure hypercholesterolemia, unspecified; Z88.8 Allergy status to other drugs, medicaments and biological substances; Z95.5 Presence of coronary angioplasty implant and graft; Z79.82 Long term (current) use of aspirin; Z79.899 Other long term (current) drug therapy
CPT/HCPCS: 36415; 74177; 80048; 80053; 81003; 82272; 83690; 83735; 85025; 86140; 87045; 87046; 87493; 87899; 96361; 96365; 96366; 96374; 96375; 99223; 99233; 99239; 99285-25; A9270-GY; G0378; J1171; J2405; J2543; J7030; Q9967